=== PATIENT | female | born 1980 | race Caucasian/White ===

== ENCOUNTER 2023-10-05 11:18 | Emergency (ER) | payer MEDICAID ==
[~2023-10-05] VITALS: Ht 160 cm; Wt 83.1 kg
[2023-10-05 11:35] VITALS: BP 128/69; PULSE 61; RESP 18; TEMP 97.8; O2SAT 99
[2023-10-05 11:47] VITALS: O2SAT 99
[2023-10-05 12:07] LABS: BASOPHILS # (AUTO) 0.1 K/uL (0.00-0.22); EOSINOPHILS # (AUTO) 0.2 K/uL (0-0.4); EOSINOPHILS % (AUTO) 2.8 % (0.0-4.0); HEMATOCRIT 41.5 % (36-48); HEMOGLOBIN 14.2 g/dL (12.0-16.0); LYMPHOCYTES # (AUTO) 2.1 K/uL (2.5-16.5); LYMPHOCYTES % (AUTO) 31.5 % (20.5-51.1); MEAN CORPUSCULAR HEMOGLOBIN 31 pg (27-31); MEAN CORPUSCULAR HGB CONC 34 g/dL (33-37); MEAN CORPUSCULAR VOLUME 91.4 fL (80-94); MONOCYTES # (AUTO) 0.3 K/uL (0.8-1.0); MONOCYTES % (AUTO) 4.7 % (1.7-9.3); NEUTROPHILS # (AUTO) 4.1 K/uL (1.8-7.7); PLATELET COUNT (AUTO) 284 K/uL (140-450); RED BLOOD CELL COUNT(AUTO) 4.54 MIL/uL (4.20-5.40); RED CELL DISTRIBUTION WIDTH 12.7 % (11.6-13.7); WHITE BLOOD COUNT (AUTO) 6.8 K/uL (4.8-10.8)
[2023-10-05 12:16] LABS: ANION GAP 12.5 (8-16); CALCIUM 8.9 mg/dL (8.5-10.1); CARBON DIOXIDE 28.7 mmol/L (21-32); CREATININE 0.7 mg/dL (0.6-1.3); POTASSIUM 4.2 mmol/L (3.5-5.1)
[2023-10-05] MEDS: KETOROLAC 30 MG/ML VIAL IVP ONE (12:27)
[2023-10-05] MEDS: ONDANSETRON 4 MG/2 ML VIAL IVP ONE (12:27)
[2023-10-05 12:28] LABS: BILIRUBIN,DIRECT 0.1 mg/dL (0.0-0.3); TOTAL BILIRUBIN 0.4 mg/dL (0.0-1.0)
[2023-10-05 13:13] LABS: APPEARANCE,URINE CLEAR (CLEAR); BILIRUBIN,URINE NEGATIVE (NEGATIVE); BLOOD, URINE NEGATIVE (NEGATIVE); COLOR,URINE YELLOW (YELLOW); LEUKOCYTE ESTERASE ,URINE NEGATIVE (NEGATIVE); NITRITE, URINE NEGATIVE (NEGATIVE); PROTEIN,URINE NEGATIVE (NEGATIVE); UGLUCOSE NEGATIVE (NEGATIVE); UROBILINOGEN,URINE 0.2 EU/dL (0.2 - 1)
[2023-10-05] MEDS: DICYCLOMINE 20 MG/2 ML VIAL IM ONE (13:33)
[2023-10-05 13:39] VITALS: BP 130/67; PULSE 51; RESP 18; TEMP 98.3
[2023-10-05 14:09] VITALS: O2SAT 99
[2023-10-05] MEDS ORDERED: DICY20TA2 PO (14:50)
[2023-10-05] MEDS ORDERED: MIRABULK PO (14:50)
[2023-10-05] MEDS ORDERED: ONDA-188 PO (14:50)
== END 2023-10-05 14:37 | disposition home or self-care (01) ==
LOC: MED 11:36
DX: K59.00 Constipation, unspecified (principal); K58.9 Irritable bowel syndrome, unspecified; R11.10 Vomiting, unspecified; R03.0 Elevated blood-pressure reading, without diagnosis of hypertension; Z90.49 Acquired absence of other specified parts of digestive tract; Z98.51 Tubal ligation status; Z79.1 Long term (current) use of non-steroidal anti-inflammatories (NSAID); Z79.899 Other long term (current) drug therapy
CPT/HCPCS: 36415; 74176; 80048; 80076; 81003; 81025; 83690; 85025; 96372; 96374; 96375; 99285; J0500; J1885; J2405

== ENCOUNTER 2023-11-17 11:34 | Emergency (ER) | payer MEDICAID ==
[~2023-11-17] VITALS: Ht 160 cm; Wt 83.9 kg
[~2023-11-17 11:34] MED LIST: DICY20TA2 PO; MIRABULK PO; ONDA-188 PO
[2023-11-17 12:22] VITALS: BP 124/79; PULSE 65; RESP 17; TEMP 98.1; O2SAT 91
[2023-11-17 13:50] VITALS: BP 131/83; PULSE 70; RESP 18; TEMP 98; O2SAT 95
[2023-11-17] MEDS ORDERED: TRAM-748 PO (15:15)
== END 2023-11-17 16:27 | disposition home or self-care (01) ==
LOC: MED 11:34
DX: S53.402A Unspecified sprain of left elbow, initial encounter (principal); S56.912A Strain of unspecified muscles, fascia and tendons at forearm level, left arm, initial encounter; M25.512 Pain in left shoulder; Z90.49 Acquired absence of other specified parts of digestive tract; Z98.51 Tubal ligation status; Z79.899 Other long term (current) drug therapy; X58.XXXA Exposure to other specified factors, initial encounter; Y92.89 Other specified places as the place of occurrence of the external cause; Y93.89 Activity, other specified; Y99.8 Other external cause status
CPT/HCPCS: 73080; 99283